=== PATIENT | female | born 1960 | race Caucasian/White ===

== ENCOUNTER 2023-01-23 19:50 | Emergency (ER) | payer OTHER ==
[~2023-01-23] VITALS: Ht 154.9 cm; Wt 63.5 kg
[2023-01-23 20:10] VITALS: BP 138/80; PULSE 80; RESP 17; TEMP 97.8; O2SAT 97
--- NOTE | 2023-01-23 20:25 | NUR ---
PT AMBULATED TO BED 12.
[2023-01-23 20:35] VITALS: TEMP 97.8
--- NOTE | 2023-01-23 20:35 | NUR ---
PATIENT IS A 62/F WHO CAME IN DUE TO LLQ ABDOMINAL PAIN RADIATING TO ENTIRE ABDOMEN; 05/02, BURNING, INTERMITTENT X 4 DAYS AGO. LAST BM: 1730 PMHX: HIGH CHOLESTEROL ALLERGIES: PENICILLINS
--- NOTE | 2023-01-23 20:39 | NUR ---
ERMD EXAMINING PATIENT AT BEDSIDE.
[2023-01-23] MEDS ORDERED: ACETAMINOPHEN EXTRA STRENGTH 500 MG TAB PO ONE (20:45)
[2023-01-23] MEDS ORDERED: METOCLOPRAMIDE 10 MG/2 ML INJ VIAL IVP ONE (20:45)
[2023-01-23] MEDS ORDERED: DICYCLOMINE HCL LIQUID 20 MG, ALUMINUM HYD/MAG/SIMETHICONE 30 ML, LIDOCAINE VISCOUS 2% ... PO ONE ×3 (20:45)
[2023-01-23] MEDS ORDERED: ONDANSETRON 4 MG/2 ML VIAL IVP ONE (20:45)
[2023-01-23] MEDS ORDERED: NACL 0.9% 1,000 ML IV ONE (20:45)
[2023-01-23] MEDS ORDERED: DICYCLOMINE HCL LIQUID 10 MG/5 ML UDC ONE (20:49)
[2023-01-23] MEDS ORDERED: ALUMINUM HYD/MAG/SIMETHICONE 30 ML UDC ONE (20:49)
[2023-01-23 21:17] LABS: APPEARANCE,URINE CLEAR (CLEAR); BILIRUBIN,URINE NEGATIVE (NEGATIVE); BLOOD, URINE NEGATIVE (NEGATIVE); COLOR,URINE YELLOW (YELLOW); LEUKOCYTE ESTERASE ,URINE NEGATIVE (NEGATIVE); NITRITE, URINE NEGATIVE (NEGATIVE); UGLUCOSE NEGATIVE (NEGATIVE)
[2023-01-23 21:32] LABS: BASOPHILS # (AUTO) 0.1 K/uL (0.00-0.22); BASOPHILS % (AUTO) 0.7 % (0.0-2.0); EOSINOPHILS % (AUTO) 0.3 % (0.0-4.0); HEMATOCRIT 41.9 % (36-48); HEMOGLOBIN 14.2 g/dL (12.0-16.0); LYMPHOCYTES # (AUTO) 2.3 K/uL (2.5-16.5); LYMPHOCYTES % (AUTO) 23.7 % (20.5-51.1); MEAN CORPUSCULAR HEMOGLOBIN 28 pg (27-31); MEAN CORPUSCULAR HGB CONC 34 g/dL (33-37); MEAN CORPUSCULAR VOLUME 81.6 fL (80-94); MONOCYTES # (AUTO) 0.6 K/uL (0.8-1.0); MONOCYTES % (AUTO) 6.2 % (1.7-9.3); NEUTROPHILS # (AUTO) 6.7 K/uL (1.8-7.7); NEUTROPHILS % (AUTO) 69.1 % (42.2-75.2); PLATELET COUNT (AUTO) 238 K/uL (140-450); RED BLOOD CELL COUNT(AUTO) 5.14 MIL/uL (4.20-5.40); RED CELL DISTRIBUTION WIDTH 15.1 % (11.6-13.7); WHITE BLOOD COUNT (AUTO) 9.7 K/uL (4.8-10.8)
[2023-01-23 21:50] LABS: ANION GAP 14.5 (8-16); CARBON DIOXIDE 29.5 mmol/L (21-32); CREATININE 0.7 mg/dL (0.6-1.3); TOTAL BILIRUBIN 0.7 mg/dL (0.0-1.0)
[2023-01-23] MEDS ORDERED: ONDA-188 SL (22:22)
[2023-01-23] MEDS ORDERED: LOPE-289 PO (22:22)
[2023-01-23] MEDS ORDERED: ALUM355S59 PO (22:22)
[2023-01-23 23:05] VITALS: BP 113/59; PULSE 60; RESP 18; O2SAT 95
--- NOTE | 2023-01-23 23:05 | NUR ---
Patient discharged with v/s stable. Written and verbal after care instructions given and explained. Patient alert, oriented and verbalized understanding of instructions. Ambulatory with steady gait. All questions addressed prior to discharge. ID band removed. Patient advised to follow up with PMD. Rx of Maalox Advanced Suspension, Imodium and Zofran given. Patient educated on indication of medication including possible reaction and side effects. Opportunity to ask questions provided and answered.
== END 2023-01-23 23:05 | disposition home or self-care (01) ==
LOC: MED 19:50
DX: R11.2 Nausea with vomiting, unspecified (principal); R10.12 Left upper quadrant pain; E86.0 Dehydration; R19.7 Diarrhea, unspecified; Z88.0 Allergy status to penicillin; Z79.899 Other long term (current) drug therapy
CPT/HCPCS: 36415; 80053; 81003; 83690; 85025; 96361; 96374; 96375; 99284; J2405; J2765; J7030

== ENCOUNTER 2023-01-29 11:05 | Emergency (ER) | payer OTHER ==
[~2023-01-29] VITALS: Ht 154.9 cm; Wt 66.7 kg
[~2023-01-29 11:05] MED LIST: ALUM355S59 PO; LOPE-289 PO; ONDA-188 SL
[2023-01-29 11:20] VITALS: BP 128/66; PULSE 78; RESP 20; TEMP 97.5; O2SAT 93
--- NOTE | 2023-01-29 12:00 | NUR ---
Pt bibs for abd pain at lower abd that has been reoccuring for a week. Pt has been seen at this ED and at her pcp for the same reason last week. Pt came because she is concerned her symptoms are not improving. Pain is constant, non radiating, ache, 6/10. Pt is a/o x 4, vss, no ss of acute distress, breathing equal and unlabored, speech clear.
[2023-01-29 12:24] LABS: BASOPHILS # (AUTO) 0.1 K/uL (0.00-0.22); BASOPHILS % (AUTO) 0.8 % (0.0-2.0); EOSINOPHILS % (AUTO) 0.3 % (0.0-4.0); HEMATOCRIT 43.1 % (36-48); HEMOGLOBIN 14.3 g/dL (12.0-16.0); LYMPHOCYTES # (AUTO) 1.6 K/uL (2.5-16.5); MEAN CORPUSCULAR HEMOGLOBIN 28 pg (27-31); MEAN CORPUSCULAR HGB CONC 33 g/dL (33-37); MEAN CORPUSCULAR VOLUME 83.4 fL (80-94); MONOCYTES # (AUTO) 0.3 K/uL (0.8-1.0); MONOCYTES % (AUTO) 3.7 % (1.7-9.3); NEUTROPHILS % (AUTO) 77.2 % (42.2-75.2); PLATELET COUNT (AUTO) 252 K/uL (140-450); RED BLOOD CELL COUNT(AUTO) 5.17 MIL/uL (4.20-5.40); WHITE BLOOD COUNT (AUTO) 9.1 K/uL (4.8-10.8)
[2023-01-29 12:27] LABS: APPEARANCE,URINE CLEAR (CLEAR); BILIRUBIN,URINE NEGATIVE (NEGATIVE); BLOOD, URINE NEGATIVE (NEGATIVE); COLOR,URINE YELLOW (YELLOW); LEUKOCYTE ESTERASE ,URINE NEGATIVE (NEGATIVE); NITRITE, URINE NEGATIVE (NEGATIVE); UGLUCOSE NEGATIVE (NEGATIVE)
[2023-01-29 12:40] LABS: ALBUMIN 3.8 g/dL (3.4-5.0); ANION GAP 12.8 (8-16); CARBON DIOXIDE 26.9 mmol/L (21-32); CREATININE 0.7 mg/dL (0.6-1.3); POTASSIUM 3.7 mmol/L (3.5-5.1); TOTAL BILIRUBIN 0.6 mg/dL (0.0-1.0)
[2023-01-29] MEDS ORDERED: FAMOTIDINE 20 MG/2 ML VIAL IVP ONE (12:55)
[2023-01-29] MEDS ORDERED: ALUMINUM HYD/MAG/SIMETHICONE 30 ML UDC PO ONE (12:55)
[2023-01-29] MEDS ORDERED: ONDANSETRON 4 MG/2 ML VIAL IVP ONE (12:55)
[2023-01-29] MEDS ORDERED: BEN10 PO (12:58)
[2023-01-29] MEDS ORDERED: SUCR1TAB35 PO (12:58)
[2023-01-29] MEDS ORDERED: ACETAMINOPHEN 325 MG TAB PO ONE (13:00)
[2023-01-29] MEDS ORDERED: NACL 0.9% 1,000 ML IV ONE (13:10)
--- NOTE | 2023-01-29 13:30 | NUR ---
Still awaiting DC packet. Med ordered after dc order. Pt is to be dc'd after fluid completion.
[2023-01-29 15:01] VITALS: BP 121/78; PULSE 75; RESP 18; O2SAT 98
--- NOTE | 2023-01-29 15:04 | NUR ---
Patient discharged with v/s stable. Written and verbal after care instructions given and explained. Patient alert, oriented and verbalized understanding of instructions. Ambulatory with steady gait. All questions addressed prior to discharge. ID band removed. Patient advised to follow up with PMD. Rx reviewed. Patient educated on indication of medication including possible reaction and side effects. Opportunity to ask questions provided and answered.
== END 2023-01-29 15:00 | disposition home or self-care (01) ==
LOC: MED 11:05
DX: R10.33 Periumbilical pain (principal); R10.13 Epigastric pain; Z88.0 Allergy status to penicillin; Z79.899 Other long term (current) drug therapy
CPT/HCPCS: 36415; 74176; 80053; 81003; 83690; 85025; 96361; 96374; 96375; 99285; J2405; J3490; J7030

== ENCOUNTER 2024-02-23 19:13 | Emergency (ER) | payer OTHER ==
[~2024-02-23] VITALS: Ht 157.5 cm; Wt 70.8 kg
[~2024-02-23 19:13] MED LIST changes: +BEN10 PO; +SUCR-3 PO
[2024-02-23 19:22] VITALS: BP 154/83; PULSE 117; RESP 22; TEMP 97.3; O2SAT 98
[2024-02-23] MEDS: NACL 0.9% 1,000 ML IV ONE (21:39)
[2024-02-23] MEDS: metroNIDAZOLE 500 MG/NS PREMIX 100 ML IV ONE (21:39)
[2024-02-23 21:40] VITALS: O2SAT 97
[2024-02-23 21:43] LABS: BASOPHILS # (AUTO) 0.1 K/uL (0.00-0.22); EOSINOPHILS # (AUTO) 0.1 K/uL (0-0.4); EOSINOPHILS % (AUTO) 0.8 % (0.0-4.0); HEMATOCRIT 44.6 % (36-48); HEMOGLOBIN 14.7 g/dL (12.0-16.0); LYMPHOCYTES # (AUTO) 2.4 K/uL (2.5-16.5); LYMPHOCYTES % (AUTO) 26.2 % (20.5-51.1); MEAN CORPUSCULAR HEMOGLOBIN 28 pg (27-31); MEAN CORPUSCULAR HGB CONC 33 g/dL (33-37); MEAN CORPUSCULAR VOLUME 83.1 fL (80-94); MONOCYTES # (AUTO) 0.6 K/uL (0.8-1.0); NEUTROPHILS # (AUTO) 6.2 K/uL (1.8-7.7); PLATELET COUNT (AUTO) 253 K/uL (140-450); RED BLOOD CELL COUNT(AUTO) 5.37 MIL/uL (4.20-5.40); RED CELL DISTRIBUTION WIDTH 14.9 % (11.6-13.7); WHITE BLOOD COUNT (AUTO) 9.3 K/uL (4.8-10.8)
[2024-02-23 21:51] LABS: ANION GAP 16.1 (8-16); CALCIUM 9.1 mg/dL (8.5-10.1); CARBON DIOXIDE 26.1 mmol/L (21-32); CREATININE 0.7 mg/dL (0.6-1.3); POTASSIUM 4.2 mmol/L (3.5-5.1)
[2024-02-23 21:52] LABS: APPEARANCE,URINE CLEAR (CLEAR); BILIRUBIN,URINE NEGATIVE (NEGATIVE); BLOOD, URINE NEGATIVE (NEGATIVE); COLOR,URINE YELLOW (YELLOW); LEUKOCYTE ESTERASE ,URINE NEGATIVE (NEGATIVE); NITRITE, URINE NEGATIVE (NEGATIVE); PROTEIN,URINE NEGATIVE (NEGATIVE); UGLUCOSE NEGATIVE (NEGATIVE); UROBILINOGEN,URINE 0.2 EU/dL (0.2 - 1)
[2024-02-23 21:58] LABS: ALBUMIN 3.8 g/dL (3.4-5.0); BILIRUBIN,DIRECT 0.1 mg/dL (0.0-0.3); TOTAL BILIRUBIN 0.6 mg/dL (0.0-1.0); TOTAL PROTEIN, SERUM 8.2 g/dL (6.4-8.2)
[2024-02-23 22:02] LABS: LACTIC ACID 0.9 mmol/L (0.4-2.0)
[2024-02-23 22:54] VITALS: BP 115/56; RESP 14; O2SAT 98
[2024-02-23] MEDS ORDERED: METR-435 PO (22:58)
== END 2024-02-23 23:10 | disposition home or self-care (01) ==
LOC: MED 19:13
DX: K52.9 Noninfective gastroenteritis and colitis, unspecified (principal); E11.9 Type 2 diabetes mellitus without complications; E78.5 Hyperlipidemia, unspecified; F32.9 Major depressive disorder, single episode, unspecified; F41.9 Anxiety disorder, unspecified; Z79.899 Other long term (current) drug therapy; Z88.0 Allergy status to penicillin
CPT/HCPCS: 36415; 71045; 80048; 80076; 81003; 83605; 85025; 87040; 87086; 93005; 96365; 99285; J3490; J7030; Q0092